=== PATIENT | male | born 1940 ===

== ENCOUNTER 2025-04-11 18:03 | Emergency (ER) | payer MEDICARE, SELFPAY ==
--- NOTE | ~2025-04-11 | CT_ITS ---
CLINICAL HISTORY: ams CT head without contrast Comparison: None provided Findings: No acute intracranial fluid collection or hematoma. Moderate chronic white matter disease with volume loss. Ventricular prominence out of proportion to subarachnoid spaces. This can indicate normal pressure hydrocephalus, please correlate. No acute process in sinuses or mastoids. No acute bony abnormality. Impression: Prominent ventricles relative to subarachnoid spaces Please correlate regarding normal pressure hydrocephalus symptoms No acute intracranial hemorrhage This document has been electronically signed by: Akira Chaidez MD on 04/11/2025 20:42:02
--- NOTE | ~2025-04-11 | XR_ITS ---
CLINICAL HISTORY: ams 1 view chest x-ray Comparison: None provided Findings: Lung apices obscured by mandible. Lungs are clear without acute infiltrates. No pneumothorax. Heart size normal. No acute bony abnormalities. Impression: No acute processes This document has been electronically signed by: Akira Chaidez MD on 04/11/2025 20:00:37
[2025-04-11 18:10] VITALS: BMI 26.2
--- NOTE | 2025-04-11 18:11 | PC.NURSE ---
expect called in by Paulette Garcia cindy ESCROW ASSISTANT. call w any questions regarding care. PMHx severe dementia. WC bound/stand and pivot for transfer. HCP invoked. DNR/DNI, transfer to hospital. staff reporting increasing assaultive behaviors, verbally aggressive, biting, scratching, hitting staff. unclear for provider if she has been getting medication, staff are documenting meds in the MAR, but are reporting to her in person that there is only one staff member who can successfully medicate and the RN doesn't work everyday. Paulette that patient has most likely been getting med inconsistently for ~ 1 month, but was taking meds prior to this. incontinent of stool and urine and staff has been unable to get collect blood/urine samples for further diagnostic workup.
--- NOTE | 2025-04-11 18:46 | ED_ITS ---
HPI - General Adult General Chief complaint: Behavioral Concerns Stated complaint: AGITATED Time Seen by Provider: 04/11/25 18:46 Source: patient Mode of arrival: ambulatory Limitations: no limitations History of Present Illness ED Provider: Dr. Zavaleta HPI narrative: History is limited due to patient's dementia Patient's arrive in the ER agitated and verbally abusive. He is an 84-year-old male history of advanced dementia presented from [facility] from [facility] for increased aggression. He has not complain of any new pain. He does have chronic back pain. Denies any shortness of breath. Patient is questioning why he is here in the ER in the 1st place. He is asking for his sister. Related Data Allergies Allergy/AdvReac Type Severity Reaction Status Date / Time No Known Allergies Allergy Verified 04/11/25 18:21 Review of Systems 2 Review of Systems: Limited review of systems due to advanced dementia [facility] Past Medical History [facility] Narrative: Dementia Social History Social History Advance Directives: Yes Advance Directives on File: Yes Advance Directives Date on File: 04/11/25 Physical Exam ED Exam Exam: General: Aggressive agitated, cachectic appearing Head: Normacephalic, atraumatic ENT: oral mucosa moist, neck supple, no tracheal deviation Cardiovascular: regular rate, regular rhythm, no murmurs, rubbing, gallops Respiratory: CTAB, no wheeze, rales, rhonchi Gastrointestinal: Soft, non distended, non tender, non guarding Extremities: No limb pain or swelling, no calf tenderness Skin: Warm and dry Psychiatric: Verbally abusive, aggressive and agitated Vital Signs: Vital Signs - 24 hr 04/11/25 18:53 04/11/25 19:08 04/11/25 19:23 Pulse Rate 91 87 Respiratory Rate 20 20 18 Blood Pressure 128/67 Pulse Oximetry 96 99 Oxygen Delivery Method Room Air Room Air BMI result Body Mass Index 26.2 Medications Administered Discontinued Medications Generic Name Dose Route Start Last Admin Trade Name Freq PRN Reason Stop Dose Admin Haloperidol Lactate 5 mg 04/11/25 18:46 04/11/25 18:53 Haloperidol Lactate 5 Mg/Ml Vial IM 04/11/25 18:47 5 mg ONCE ONE Administration Midazolam HCl 4 mg 04/11/25 18:46 04/11/25 18:55 Midazolam Hcl 2 Mg/2 Ml Vial IM 04/11/25 18:47 4 mg ONCE ONE Administration Medical Decision Making Medical Decision Making [facility] Narrative: 84-year-old male history of dementia presented hospital today for evaluation of increased aggression. Patient is aggressive and verbally abusive towards staff. Patient is refusing lab work at this time. I do not think patient has capacity. We will plan to give IM Haldol, IM Versed for the patient. I did obtain lab work to assess for causes of altered mentation. CBC shows slight anemia at 9.8. Chemistry did show some signs of dehydration. UA did not show any signs of UTI. Chest x-ray clear for any sign of pneumonia. CT head was negative. There is a finding of possible normal pressure hydrocephalus. We will plan to send a referral for Neurosurgery for evaluation of this. The patient will be discharged back to [facility] facility at this time. Differential Diagnosis Differential Diagnoses: The differential diagnosis associated with the presentation includes UTI, pneumonia, altered mentation, dementia, intracranial bleed, intracranial mass Lab Data [facility] Lab Attestation statement: I reviewed the patient's lab results. 04/11/25 19:32 04/11/25 19:32 Labs: Lab Results 04/11/25 04/11/25 Range/Units 19:32 19:44 WBC 4.8 (4.8-10.8) X10*3/uL RBC 3.36 L (4.60-5.80) X10*6/uL Hgb 9.8 L (14.0-18.0) g/dl Hct 28.6 L (42.0-52.0) % MCV 85.1 (80.0-98.0) fL MCH 29.2 (27.0-33.0) pg MCHC 34.3 (31.0-36.0) g/dl RDW 14.1 (11.0-16.0) % Plt Count 261 (160-400) X10*3/uL MPV 8.6 L (9.4-12.4) fL Immature Gran % (Auto) 0.6 H (0.0-0.4) % Neut % (Auto) 66.5 (45-73) % Lymph % (Auto) 22.0 (20-40) % [place] % (Auto) 9.5 (2-11) % Eos % (Auto) 0.8 (0-4) % Baso % (Auto) 0.6 (0-2) % Lymph # (Auto) 1.1 L (1.2-4.9) X10*3/uL [place] # (Auto) 0.5 (0.1-1.2) X10*3/uL Eos # (Auto) 0.0 (0.0-0.4) X10*3/uL Baso # (Auto) 0.0 (0.0-0.2) X10*3/uL Abs Immat Gran (auto) 0.03 (0.00-0.03) X10*3/uL Absolute Neuts (auto) 3.2 (2.0-8.3) x10*3/uL Absolute Nucleated RBC 0.000 (0.0-0.012) X10*3/uL Nucleated RBC % (auto) 0.0 (0.0-0.2) /100WBC Sodium 136 (135-145) mmol/L Potassium 4.4 (3.3-5.1) mmol/L Chloride 106 (96-108) mmol/L Carbon Dioxide 23 (22-29) mmol/L Anion Gap 11 L (12-20) BUN 31 H (9-16) mg/dL Creatinine 1.13 (0.5-1.4) mg/dL Estim Creat Clear Calc 38.9 Estimated GFR > 60 Random Glucose 122 H (60-115) mg/dL Calcium 9.0 (8.4-10.2) mg/dL Total Bilirubin 0.3 (0.0-1.0) mg/dL AST 25 (5-37) U/L ALT 17 (0-40) U/L Alkaline Phosphatase 74 (39-117) U/L Ammonia 30 (13-55) umol/L Total Protein 6.0 L (6.5-8.0) g/dL Albumin 3.9 (3.5-5.0) g/dL TSH 2.04 (0.32-4.0) uIU/mL Urine Color Yellow Urine Appearance Clear Urine pH 6.0 (5.0-9.0) Ur Specific [place] 1.025 (1.005-1.025) Urine Protein Negative (Neg-Trace) mg/dL Urine Glucose (UA) Negative (Negative) mg/dL Urine Ketones Negative (Negative) mg/dL Urine Blood Negative (Negative) Urine Nitrite Negative (Negative) Ur Leukocyte Esterase Negative (Negative) Independent Interpretation I performed an independent interpretation of an: Plain X-Ray and CT Scan Radiology Impression Discussion of test interpretation with radiology: I have reviewed the radiologist's reading. Chronic Conditions Dementia Discharge Plan Discharge Clinical Impression: Encounter for medical screening examination Patient Disposition: Xfer Psychiatric Hosp Transfer Details: Patient is a [facility]icia psych at [facility]. Discharing back to facility Additional Instructions: Urine did not show any infection, Chest x ray no pneumonia, lab did not show any significan abnormality. CT head did show possible normal pressure hydrocephalus. This will need to follow up with neurosurgery. Please call to schedule appointment. I suspect this is secondary to his advanced dementia. Referrals: [facility] [Outside] Referral Note: Evaluate for normal pressure hydrocephalus Print Language: Unknown
[2025-04-11 18:53] VITALS: RESP 20
[2025-04-11 19:08] VITALS: PULSE 91; RESP 20; O2SAT 96
--- NOTE | 2025-04-11 19:11 | PC.NURSE ---
this rn assumed care of pt, raman rn and previous rn administered IM medications as pt was combative with staff, yelling, attempting to hit and bite staff. pt initially refusing vitals
[2025-04-11 19:23] VITALS: BP 128/67; PULSE 87; RESP 18; O2SAT 99
--- NOTE | 2025-04-11 19:34 | PC.NURSE ---
pt calm and allowed this rn to obtain vitals and labs at this time.
[2025-04-11 19:35] LABS: MANUAL DIFF FLAG NO
[2025-04-11 19:38] LABS: Hematocrit 28.6 % (42.0-52.0); Hemoglobin 9.8 g/dl (14.0-18.0); Imm Gran Abs Auto 0.03 X10*3/uL (0.00-0.03); Imm Gran Pct Auto 0.6 % (0.0-0.4); Lymphocytes Absolute Auto 1.1 X10*3/uL (1.2-4.9); Mean Corpuscular HGB Conc 34.3 g/dl (31.0-36.0); Mean Corpuscular Hemoglobin 29.2 pg (27.0-33.0); Mean Corpuscular Volume 85.1 fL (80.0-98.0); NRBC Abs Auto 0.000 X10*3/uL (0.0-0.012); NRBC Pct Auto 0.0 /100WBC (0.0-0.2); Platelet Count 261 X10*3/uL (160-400); Red Blood Count 3.36 X10*6/uL (4.60-5.80); White Blood Count 4.8 X10*3/uL (4.8-10.8)
[2025-04-11 19:49] LABS: Ammonia 30 umol/L (13-55)
[2025-04-11 20:04] LABS: Alanine Aminotransferase 17 U/L (0-40); Albumin Level 3.9 g/dL (3.5-5.0); Alkaline Phosphatase 74 U/L (39-117); Anion Gap 11 (12-20); Aspartate Amino Transferase 25 U/L (5-37); Blood Urea Nitrogen 31 mg/dL (9-16); Calcium 9.0 mg/dL (8.4-10.2); Carbon Dioxide 23 mmol/L (22-29); Chloride 106 mmol/L (96-108); Creatinine Clr Calc Pharmacy 38.9; Estimated Glomerular Filt Rate > 60; Potassium 4.4 mmol/L (3.3-5.1); Sodium 136 mmol/L (135-145); Total Protein 6.0 g/dL (6.5-8.0)
[2025-04-11 20:06] LABS: Appearance Urine Clear; Glucose Urine UA Negative (Negative); PH 6.0 (5.0-9.0); Specific Gravity - Urine 1.025 (1.005-1.025)
--- NOTE | 2025-04-11 20:45 | PC.NURSE ---
pt spoke to daughter at this time, pt calm and cooperative and update given to sister
--- NOTE | 2025-04-11 21:35 | PC.NURSE ---
report given to Miguel KNAPP
[2025-04-11 23:30] VITALS: BP 122/77; PULSE 77; RESP 15; TEMP 36.7; O2SAT 95
--- NOTE | 2025-04-11 23:30 | PC.NURSE ---
ems at bedside for report and transport
== END 2025-04-11 23:35 ==
PROVIDERS: Emergency Provider Student in an Organized Health Care Education/Training Program; PCP Internal Medicine
DX: R45.1 Restlessness and agitation (principal); R41.82 Altered mental status, unspecified; F03.90 Unspecified dementia, unspecified severity, without behavioral disturbance, psychotic disturbance, mood disturbance, and anxiety; M54.50 Low back pain, unspecified; G89.29 Other chronic pain
CPT/HCPCS: 36415; 70450; 71045; 80053; 81003; 82140; 84443; 85025; 96372; 99284; 99285; J1630; J2250

== ENCOUNTER → 2025-04-11 18:47 | Outpatient (BNV) | payer MEDICARE, SELFPAY | PROVIDERS: Emergency Provider Student in an Organized Health Care Education/Training Program; PCP Internal Medicine; Visit Provider Radiology Diagnostic Radiology | DX: R41.82 Altered mental status, unspecified (principal) | CPT/HCPCS: 70450; 71045 ==

== ENCOUNTER 2025-04-24 21:35 | Emergency (ER) | payer MEDICARE, SELFPAY ==
[2025-04-24 21:44] VITALS: BP 148/83; PULSE 113; RESP 20; TEMP 36.7; O2SAT 95; BMI 19.9
--- NOTE | 2025-04-24 22:03 | PC.NURSE ---
pt [facility], alert but not oriented. per ems staff states after dinner pt became confused and combative wit staff striking them and shouting. on arrival, pt remains con fused, combative an yelling with staff. security at bedside and medications administered. vss.
[2025-04-25 00:27] VITALS: BP 135/88; PULSE 92; RESP 14; O2SAT 96
[2025-04-25 00:47] LABS: Appearance Urine Clear; Glucose Urine UA Negative (Negative); PH 7.0 (5.0-9.0); Specific Gravity - Urine 1.020 (1.005-1.025)
--- NOTE | 2025-04-25 01:33 | PC.NURSE ---
pt remains calm and cooperative at this time. report given to Suma KNAPP [facility], ems booked at this time for transport.
--- NOTE | 2025-04-25 01:34 | ED_ITS ---
HPI - General Adult General Chief complaint: Behavioral Concerns Stated complaint: SN[facility] dementia unit combative with everyone Time Seen by Provider: 04/24/25 21:50 Source: EMS and RN notes reviewed Limitations: other (Advanced dementia) History of Present Illness ED Provider: Hiwot Mai PA-C HPI narrative: 84-year-old male with a history of advanced dementia with the associated underlying agitation, presents from [facility] with the aggressive behavior. Patient developed agitation and aggression overnight, was becoming combative with staff. Related Data Allergies Allergy/AdvReac Type Severity Reaction Status Date / Time No Known Allergies Allergy Verified 04/24/25 21:47 Review of Systems 2 Review of Systems: Unable to obtain Yes all other systems are reviewed and are negative [facility] Past Medical History Attestation statement: The following information was validated with the patient. Social History Social History Advance Directives: Yes Advance Directives on File: Yes Advance Directives Date on File: 04/11/25 Do you have a plan to hurt others: No Plan Physical Exam ED Vital Signs: Vital Signs - 24 hr 04/24/25 21:44 04/25/25 00:27 Temperature 98.0 F Pulse Rate 113 H 92 Respiratory Rate 20 14 Blood Pressure 148/83 H 135/88 Pulse Oximetry 95 96 Oxygen Delivery Method Room Air Room Air BMI result Body Mass Index 19.9 Const Other: Awake, we will not stop yelling Orientation/consciousness: oriented to person Resp Effort & Inspection: normal respiratory effort Cardio Other: Normal peripheral perfusion Skin Other: Warm dry no rash Neuro General: oriented to person and no focal motor deficits Extrem Other: Moves all extremities independently in bed, struggling against attempts to maintain safety while he is in bed, becoming verbally and physically aggressive with staff here in the emergency room Psych Other: Hostile, belligerent, yelling profanities at staff members Medications Administered Discontinued Medications Generic Name Dose Route Start Last Admin Trade Name Freq PRN Reason Stop Dose Admin Haloperidol Lactate 5 mg 04/24/25 21:49 04/24/25 21:55 Haloperidol Lactate 5 Mg/Ml Vial IM 04/24/25 21:50 5 mg STAT STA Administration Midazolam HCl 3 mg 04/24/25 21:49 04/24/25 21:55 Midazolam Hcl 2 Mg/2 Ml Vial IM 04/24/25 21:50 3 mg ONCE ONE Administration Medical Decision Making Medical Decision Making [facility] Narrative: 84-year-old male with a history of advanced dementia with the associated underlying agitation, presents from [facility] with the aggressive behavior. Patient developed agitation and aggression overnight, was becoming combative with staff. Problem: Dementia History: Per EMS I have considered the following differential diagnoses: Baseline behavior, UTI, worsening behavioral symptoms associated with dementia Plan: We will screen labs and a urine sample as medical clearance. The patient is known to our emergency room, he has behavioral outbursts associated with the his dementia. We are having to medicate for the patient's safety, in the safety of staff at this point. Differential Diagnosis Differential Diagnoses: The differential diagnosis associated with the presentation includes See [facility] Admission/Observation Consideration of admission/observation: Escalation of care including admission/observation considered Not applicable Lab Data [facility] Lab Attestation statement: I reviewed the patient's lab results. 04/24/25 22:34 04/24/25 22:34 Labs: Lab Results 04/24/25 04/25/25 Range/Units 22:34 00:29 WBC 6.0 (4.8-10.8) X10*3/uL RBC 3.66 L (4.60-5.80) X10*6/uL Hgb 10.8 L (14.0-18.0) g/dl Hct 30.3 L (42.0-52.0) % MCV 82.8 (80.0-98.0) fL MCH 29.5 (27.0-33.0) pg MCHC 35.6 (31.0-36.0) g/dl RDW 13.9 (11.0-16.0) % Plt Count 296 (160-400) X10*3/uL MPV 8.6 L (9.4-12.4) fL Immature Gran % (Auto) 0.5 H (0.0-0.4) % Neut % (Auto) 67.6 (45-73) % Lymph % (Auto) 19.6 L (20-40) % [place] % (Auto) 11.5 H (2-11) % Eos % (Auto) 0.5 (0-4) % Baso % (Auto) 0.3 (0-2) % Lymph # (Auto) 1.2 (1.2-4.9) X10*3/uL [place] # (Auto) 0.7 (0.1-1.2) X10*3/uL Eos # (Auto) 0.0 (0.0-0.4) X10*3/uL Baso # (Auto) 0.0 (0.0-0.2) X10*3/uL Abs Immat Gran (auto) 0.03 (0.00-0.03) X10*3/uL Absolute Neuts (auto) 4.1 (2.0-8.3) x10*3/uL Absolute Nucleated RBC 0.000 (0.0-0.012) X10*3/uL Nucleated RBC % (auto) 0.0 (0.0-0.2) /100WBC Sodium 140 (135-145) mmol/L Potassium 4.2 (3.3-5.1) mmol/L Chloride 104 (96-108) mmol/L Carbon Dioxide 25 (22-29) mmol/L Anion Gap 15 (12-20) BUN 25 H (9-16) mg/dL Creatinine 0.99 (0.5-1.4) mg/dL Estim Creat Clear Calc 48.3 Estimated GFR > 60 Random Glucose 105 (60-115) mg/dL Calcium 9.2 (8.4-10.2) mg/dL Magnesium 1.9 (1.6-2.6) mg/dL Total Bilirubin 0.6 (0.0-1.0) mg/dL AST 25 (5-37) U/L ALT 28 (0-40) U/L Alkaline Phosphatase 77 (39-117) U/L Total Protein 6.2 L (6.5-8.0) g/dL Albumin 4.1 (3.5-5.0) g/dL Urine Color Yellow Urine Appearance Clear Urine pH 7.0 (5.0-9.0) Ur Specific [place] 1.020 (1.005-1.025) Urine Protein Negative (Neg-Trace) mg/dL Urine Glucose (UA) Negative (Negative) mg/dL Urine Ketones Negative (Negative) mg/dL Urine Blood Negative (Negative) Urine Nitrite Negative (Negative) Ur Leukocyte Esterase Negative (Negative) Discharge Plan Discharge Clinical Impression: Agitation due to dementia Patient Disposition: Home, Self-Care Instructions: Dementia (ED) Additional Instructions: The patient has been medically cleared, he had no lab abnormalities, he does not have a urinary tract infection. He is known to have associated agitation and aggression associated with the his underlying advanced dementia. Print Language: Unknown
[2025-04-25 02:38] VITALS: BP 152/80; PULSE 80; RESP 16; TEMP 36.7; O2SAT 98
[2025-04-25 02:39] VITALS: BP 152/80; PULSE 80; RESP 16; TEMP 36.7; O2SAT 98
== END 2025-04-25 02:39 | disposition home or self-care (01) ==
PROVIDERS: Physician Assistant Medical; Emergency Provider Emergency Medicine
DX: F03.911 Unspecified dementia, unspecified severity, with agitation (principal)
CPT/HCPCS: 36415; 51701; 80053; 81003; 83735; 85025; 96372; 99284; 99285; J1630; J2250

== ENCOUNTER 2025-04-25 04:07 | Emergency (ER) | payer MEDICARE, SELFPAY ==
[2025-04-25] VITALS (9 sets, daily range): BP systolic 137–152; BP diastolic 77–117; PULSE 91–106; RESP 15–20; TEMP 36.7–36.8; O2SAT 98–100; BMI 33.8
--- NOTE | ~2025-04-25 | CT_ITS ---
EXAMINATION: CT CHEST WITHOUT CONTRAST CLINICAL INFORMATION: Chest and upper back pain COMPARISON: Correlated to chest x-ray dated April 11, 2025. TECHNIQUE: Multidetector volumetric CT imaging of the chest was done. Axial MIP volume rendering provided. Sagittal and coronal reformatted images were obtained. This CT examination was performed using dose optimization techniques as appropriate, variously including the following: *Automated exposure control *Adjustment of mA and/or kV according to patient size (this includes techniques or standardized protocols for targeted exams where dose is matched to indication/reason for exam; i.e. extremities or head) *Use of iterative reconstruction technique DLP: 171.18 mGy-cm FINDINGS: Patient's motion artifact. SUPERVISOR FIREARMS: Satisfactory inspiration. Metallic prosthesis left hip. Upper extremities at the size of the body LUNGS: Atelectasis, lung bases. No bronchiectasis. No honeycombing. No gross consolidation. Respiratory airways is patent. Unable to assess for pulmonary nodules due to collimation acquisition and patient's motion. MEDIASTINUM: Prominent, less than 1 cm right pretracheal lymph node. Calcified plaques in the thoracic aorta wall. Ascending thoracic aorta diameter: 4 cm. Aortic arch diameter: 2.8 cm. The ascending thoracic aorta diameter: 3 cm. Calcified plaques in the coronary arteries. Prominent left heart chambers. Small trace volume pericardial effusion. No pneumomediastinum. CORONARY ARTERY CALCIFICATION: Calcified plaques. PLEURA: No pleural effusion. No pneumothorax. No hemothorax. No calcified pleural plaques. AXILLA: No lymphadenopathy. UPPER ABDOMEN: Please refer to the CT abdomen dated April 25, 2025. OSSEOUS STRUCTURES: There is beam hardening artifact secondary to posterior cervical thoracic fusion hardware extending from C7 to T3. Old compression deformity representing 50% volume loss at T4. 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 Kyphotic deformity apex at T7. No acute cortical disruption or gross malalignment. Osteopenia versus osteoporosis. Inadequate evaluation due to patient's treating motion artifact. No gross acute rib fracture. Degenerative changes in the shoulders. 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 Atelectasis lung bases. Coronary artery disease and atherosclerosis disease. Please refer to the CT abdomen pelvis. Fleischner guidelines were followed. Electronically signed by: Jacob Cano MD 04/25/2025 09:10 AM [facility]
--- NOTE | ~2025-04-25 | CT_ITS ---
EXAMINATION: CT ABDOMEN PELVIS WITHOUT IV CONTRAST HISTORY: abdominal and lower back pain COMPARISON: There are no prior studies available for comparison. TECHNIQUE: CT scan of the abdomen and pelvis was performed without contrast using standard departmental protocol. Coronal and sagittal reformatted images were generated and reviewed. Oral contrast material was not administered at the request of the referring physician. This CT exam was performed with one or more of the following dose reduction techniques: automated exposure control, adjustment of the mA and/or kV according to patient size, use of iterative reconstruction technique. DLP: 456 mGy-cm FINDINGS: LOWER CHEST: The visualized lung bases are clear. There is no pleural effusion. CARDIOVASCULATURE: The heart is normal in size. There is severe coronary arterial calcification. There is no pericardial effusion. LIVER: The liver is normal in size and contour. There is a 1.1 cm probable cyst in the right lobe and a 1.6 cm probable cyst in the left lobe. GALLBLADDER / BILE DUCTS: The gallbladder is unremarkable. There is no intra or extrahepatic biliary ductal dilatation. SPLEEN: The spleen is normal in size and has an unremarkable unenhanced appearance. PANCREAS: The pancreas has an unremarkable unenhanced appearance. ADRENAL GLANDS: Unremarkable. KIDNEYS/RETROPERITONEUM: No renal calculi are identified. There is mild bilateral hydronephrosis which may be due to a full urinary bladder. LYMPH NODES: No retroperitoneal lymphadenopathy is identified in the abdomen or pelvis. VASCULATURE: The abdominal aorta demonstrates atherosclerotic calcification, but is normal in caliber. MESENTERY/PERITONEUM: No free fluid. No masses. There is no free intraperitoneal gas. STOMACH: The stomach is collapsed, limiting evaluation. SMALL BOWEL: The small bowel is normal in caliber. COLON: The colon is unremarkable. APPENDIX: The appendix is not seen, however no inflammatory changes are seen adjacent to the cecum. URINARY BLADDER/PELVIC ORGANS: The urinary bladder is distended. There is a left lateral bladder diverticulum. The prostate is mildly enlarged. BONES / SOFT TISSUES: There is severe degenerative disc disease of the lumbar spine. L4 and L5 are fused. There is grade I spondylolisthesis of L4 on L5 and mild retrolisthesis of L5 on S1. The patient is status post left total hip arthroplasty. CT/CT abdomen pelvis wo IV con IMPRESSION: 1. Mild bilateral hydronephrosis which may be secondary to a full urinary bladder. 2. Severe degenerative disc disease of the lumbar spine. Electronically signed by: Marco Antonio Valdez MD 04/25/2025 08:50 AM [facility]
--- NOTE | ~2025-04-25 | CT_ITS ---
EXAMINATION: CT HEAD WITHOUT IV CONTRAST CLINICAL INFORMATION: altered mental status COMPARISON: Head CT on April 11, 2025 TECHNIQUE: Contiguous axial imaging was performed from the skull base to vertex without intravenous administration of contrast. This CT examination was performed using dose optimization techniques as appropriate, variously including the following: *Automated exposure control *Adjustment of mA and/or kV according to patient size (this includes techniques or standardized protocols for targeted exams where dose is matched to indication/reason for exam; i.e. extremities or head) *Use of iterative reconstruction technique FINDINGS: Motion degraded images, especially at the lower slices. Hardware in the occipital bone creates streak artifacts that limits local evaluation. Within these limitations, the findings are as follows: Brain parenchyma: Patchy confluent hypodensity in the white matter of bilateral cerebral hemispheres likely represents chronic small vessel ischemic changes. No shift of midline structures. No obvious mass effect, parenchymal hemorrhage or evidence of acute territorial infarct. Ventricles/extra-axial spaces: Similar prominence of the ventricles and extra-axial CSF spaces reflecting brain volume loss. As previously described, the ventricular prominence appears [id number] to the extra-axial CSF spaces. No extra-axial fluid collection. Extracranial structures/skull: Mild mucosal thickening of the paranasal sinuses. Bilateral mastoid air cells appear clear. No obvious depressed skull fracture identified. CT/CT head/brain wo IV con IMPRESSION: Partially limited examination. No obvious acute intracranial pathology. No obvious interval changes. Electronically signed by: Linda Van MD 04/25/2025 08:55 AM [facility]
--- NOTE | 2025-04-25 04:25 | PC.NURSE ---
pt [facility], previously seen here at [facility] for similar episode. per staff pt increasingly aggressive and shouting. on arrival pt shouting but cooperative with care. vss.
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
[2025-04-25] MEDS: OLANZapine 10 MG VIAL IM ×2 (04:37→05:05)
--- NOTE | 2025-04-25 06:06 | PC.NURSE ---
pt changed into hospital gown, pt noted to have no clothing and pt noted to have personal blankets from facility.
--- NOTE | 2025-04-25 06:33 | PC.NURSE ---
after multiple doses of IM medications, pt continues to be agitated and in need of CT in which pt is shouting and agitated.
--- NOTE | 2025-04-25 07:49 | ECG_ITS ---
Test Reason : AGITATION Blood Pressure : */* mmHG Vent. Rate : 97 BPM Atrial Rate : 97 BPM P-R Int : 144 ms QRS Dur : 88 ms QT Int : 352 ms P-R-T Axes : 51 1 -5 degrees QTcB Int : 447 ms Normal sinus rhythm Septal infarct , age undetermined Abnormal ECG No previous ECGs available Referred By: Fredis Dumont Electronically Signed By: BERTA MASCORRO
[2025-04-25] MEDS: Ketamine HCl/NS 100 MG/10 ML SYRINGE 25 MG IVPUSH (08:16)
--- NOTE | 2025-04-25 08:55 | PC.NURSE ---
Pt sent back to ED from [facility]. Staff at [facility] refusing to take pt back. States he is unsafe. Pt returned to ED. C/o lower back pain. Baseline neuro assessment. Confused, agitated, uncooperative. Pt given IM Versed and IM droperidol to obtain CT. Pt continues to be uncooperative. IV placed and pt given ketamine. VSS. Will continue to monitor closely.
--- NOTE | 2025-04-25 09:28 | MHC.CARE ---
Called the [facility] [phone] to inquire into patient's hx and current bx. Informed staff are in a meeting and will call t/w back
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
--- NOTE | 2025-04-25 10:19 | MHC.CARE ---
Spoke with patient's sister, Kanika, , who is HCP/ POA. She reports that since his early 20s he has been diagnosed with bundled or polyarthritis. He has had the majority of his joints replace and the pain is reported to worse in his back and neck. He cannot stand well on his own and needs assistance with moving. Confirms long hx of pain medication to manage. She believes that his behaviors, his 'acting out' is likely due to pain as well as his perceived loss of agency/ independence. She reports he is resistant to being changed when incontinent, and aggresses in response to staff working to change him. He has also shared feeling upset that he is sent to the ED, that he has no choice in the matter. She shares that she did hire a private person to sit with him at the [facility], in order to support patient as well as [facility] staff. She reports that the private paid individual attempted to help change patient once, and the [facility] was not happy about that. She confirms he has been at the [facility] for roughly three years and it is only recently that he has been sent to an emergency department. Prior to the [facility], he was in a facility in [facility] for one year. Kanika believes he has been dx with Alzheimers. 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 Well, he felt he was super smart. Later goes on to share that his arrogance seems to have manifest is not wanting and resisting help. He is described as highly education, knowledgeable about music and also that he was, for a time in [facility], involved in a [employer]. Kanika is available for any questions/ concerns. She describes his dementia as advanced, and reports she will likely need help in determining next steps.
--- NOTE | 2025-04-25 11:39 | MHC.CM.ED ---
Received case management consult from Dr Dumont. Patient was sent to the ER from [facility] due to toe pain and AMS. Cleared by Care Team. Psych consult for med rec is pending. Will wait until psych consult is complete before speaking with [facility] and patient's sister/HCP, Kanika. Continue to monitor for d/c needs.
--- NOTE | 2025-04-25 12:04 | MHC.CARE ---
Faxed HCP/ POA and med list from [facility] placed in patient's physical chart.
--- NOTE | 2025-04-25 13:50 | PC.NURSE ---
Pt confused, continues to yell out for Rachelle his sister. Sister spoke with pt on the phone. Pt feels that he is being held against his will. Pt reassured that he is safe and updated on plan of care. Will continue to monitor. Pending psych consult
--- NOTE | 2025-04-25 14:56 | PM.PSYCN ---
History of Present Illness Date of Service: 04/25/2025 Chief Complaint: toe pain, aggressive, dementia Reason for Consult: Behavioral disturbance Requesting physician: Ronak Lyle Discussed with referring provider: Yes Sources of Information: patient interviewed, chart reviewed and crisis/core team assessment reviewed HPI Narrative: 84-year-old male with history of dementia with associated behavioral disturbance presented [place] [facility] for increasing agitation and aggressive behavior. He lives in the [facility] at a dementia unit. Apparently, his behavior changed after dinner the night before he presented to the ED. He has been cleared medically. On interview with this provider, patient is alert and oriented to person, place, and time. Patient found lying on the stretcher, eating lunch. He states that he feels terrible because his sister has not visited him today as promised. He reports chronic, persistent low back pain which is generally well managed. He reports anxiety and depression at this time but attributes his symptoms to his sister not visiting him. He wants to be discharged from the ED to return to the [facility]. He denies SI/HI/AVH. Per patient's nurse, patient is confused and will occasionally display verbal outbursts using vulgar language. Per nursing, the patient's behavior seems baseline. Patient was at [facility] on 04/11/2025 and the nurse who cared for him notes that she spoke with the patient's PMHNP at the [facility] who questioned the care the patient is receiving at the [facility]. The PMHNP had concerns that the patient medications were documented as given but were not always administered to the patient. Medical Evaluation Reviewed: Yes Diagnostics Vital Signs (24Hr): Vital Signs - 24 hr 04/25/25 04:14 04/25/25 06:15 04/25/25 07:20 Temperature 98.1 F 98.2 F Pulse Rate 95 100 102 H Respiratory Rate 20 15 Blood Pressure 141/110 H 138/117 H 143/102 H Pulse Oximetry 100 99 99 Oxygen Delivery Method Room Air Room Air 04/25/25 07:35 04/25/25 07:50 04/25/25 08:20 Temperature Pulse Rate 102 H 105 H 98 Respiratory Rate Blood Pressure 152/90 H 137/91 H 142/90 H Pulse Oximetry 98 99 99 Oxygen Delivery Method Room Air Room Air Room Air 04/25/25 09:00 04/25/25 13:32 Temperature 98.1 F Pulse Rate 106 H 95 Respiratory Rate 16 Blood Pressure 143/77 H 137/81 Pulse Oximetry 99 100 Oxygen Delivery Method Room Air Room Air BMI result Body Mass Index 33.8 Imaging Radiology Impressions: ITS Impressions Abdomen/Pelvis CT 04/25/25 08:13 IMPRESSION: 1. Mild bilateral hydronephrosis which may be secondary to a full urinary bladder. 2. Severe degenerative disc disease of the lumbar spine. 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 Atelectasis lung bases. Coronary artery disease and atherosclerosis disease. Please refer to the CT abdomen pelvis. Fleischner guidelines were followed. Electronically signed by: Jacob Cano MD 04/25/2025 09:10 AM EST RP Head CT 04/25/25 08:13 IMPRESSION: Partially limited examination. No obvious acute intracranial pathology. No obvious interval changes. Electronically signed by: Linda Van MD 04/25/2025 08:55 AM EST RP Mental Status Exam Mental Status Exam Narrative: Appearance: Casually dressed, adequate hygiene and grooming Behavior: Calm and cooperative throughout the interview. Irritable at times. Minimal eye contact, and there are no signs of psychomotor agitation or retardation Speech: Normal volume and prosody Thought process: Disorganized, tangential Thought content: On being discharged from the ED Mood: Calm Affect: Blunted SI: Denies HI: Denies VH/AH: Denies Delusions: None apparent Insight/judgment: Impaired insight and judgment Memory/cog: Alert, oriented x 3. grossly intact to conversational testing Medications Allergies Allergies Allergy/AdvReac Type Severity Reaction Status Date / Time No Known Allergies Allergy Verified 04/25/25 04:19 Assessment & Plan Assessment & Plan (1) Dementia with behavioral disturbance: Status: Acute Code(s): F03.918 - Unspecified dementia, unspecified severity, with other behavioral disturbance (2) Chronic back pain: Status: Acute Code(s): M54.9 - Dorsalgia, unspecified; G89.29 - Other chronic pain Plan 84-year-old male with history of dementia with associated behavioral disturbance presented to [facility] for increasing agitation and aggressive behavior. He lives in the [facility] at a dementia unit. Apparently, his behavior changed after dinner the night before he presented to the ED. He has been cleared medically. On interview with this provider, patient is alert and oriented to person, place, and time. He states that he feels terrible because his sister has not visited him today as promised. He reports chronic, persistent low back pain which is generally well managed. He reports anxiety and depression at this time but attributes his symptoms to his sister not visiting him. He wants to be discharged from the ED to return to the [facility]. He denies SI/HI/AVH. Per patient's nurse, patient is confused and will occasionally display verbal outbursts using vulgar language. Per nursing, the patient's behavior seems baseline. Patient was at [facility] on 04/11/2025 and the nurse who cared for him notes that she spoke with the patient's PMHNP at the [facility] who questioned the care the patient was receiving at the [facility]. The PMHNP had concerns that the patient medications were documented as given but were not always administered to the patient. Plan/Recommendation: Patient's symptoms may be attributed to progression of his dementia or inadequate care as a results of not been medicated as prescribed. Significant pain may also contribute to his symptoms. Recommend to continue current treatment regimen and for providers at his residence to ensure patient receives his medications as prescribed. Follow-up with PMHNP at the [facility]. Total time managing care of this patient today ____ minutes. Patient educated on: diagnosis, medication risk/benefits and therapeutic strategies
--- NOTE | 2025-04-25 16:13 | MHC.CM.ED ---
Patient cleared by Care Team. Psych consult completed. No med changes per Vita Hinkle NP. It has been determined that patient has been refusing home medications at [facility]. Met with patient's sister/HCP, Kanika, at her request. Met in family room with Kanika and her Wilfredo. Patient was living in [facility] with his until she in April 2023. Patient's dementia symptoms have been steady until about 2 weeks ago. Since then, there has been a rapid decline in patient's mentation, including refusing incontinent care and medication. At this time, Kanika feels [facility] is not able to provide the care that the patient needs and requires remote computer terminal operator care at a [facility] facility. Kanika states that patient has a lifetime remote computer terminal operator care policy and funds. Kanika will provide information on this policy to [facility]. Kanika reports that patient has been refusing his medications while at [facility]. Kanika and Wilfredo toured [facility]. That would be there 1st choice. [facility] be 2nd choice. If neither facility is able to offer a bed, Kanika and Wilfredo agreeable to referral being broadcasted. Patient is not an elopement risk because he is too weak to elope. Patient has chronic pain issues and was being treated by a pain specialist in [facility]. However, they have not been able to adress this with a provider at this time. Dr Lyle aware and will add PRN pain meds to assist patient with pain management. Continue to monitor for d/c needs.
[2025-04-25] MEDS: oxyCODONE HCl Immed Release 5 MG TABLET PO (17:30)
--- NOTE | 2025-04-25 18:55 | PC.NURSE ---
assumed care of patient, pt yelling out for help, very confused and repetitive, Meds not ordered after med rec completed. reached out to attending to order meds
--- NOTE | 2025-04-26 00:10 | PC.NURSE ---
patient continues yelling out of anyone who walks by room. very argumentative and difficult to redirect
[2025-04-26 02:20] VITALS: BP 154/80; PULSE 90; RESP 16; O2SAT 97
[2025-04-26] MEDS: oxyCODONE HCl Immed Release 5 MG TABLET PO ×3 (02:59→14:39)
--- NOTE | 2025-04-26 02:59 | PC.NURSE ---
patient reporting pain to back, medicated per MAR at this time
--- NOTE | 2025-04-26 06:00 | PC.NURSE ---
pt resting quietly in hospital bed, no apparent distress noted
[2025-04-26 08:40] VITALS: BP 152/88; PULSE 91; RESP 17; TEMP 36.5; O2SAT 100
[2025-04-26] MEDS: traZODone HCL 25 MG HALFTAB PO (09:02)
[2025-04-26] MEDS: Lidocaine 4 % Patch ADH..PATCH 1 PATCH TRANSDERMA (10:49)
--- NOTE | 2025-04-26 12:03 | PC.NURSE ---
pt repeatedly calling out for help. each time nursing staff addresses pts needs. assisted with water, food, repositioning, urinating. Griselda ISLAS ordered tylenol and a lidocaine patch - pt reports mid back pain.
--- NOTE | 2025-04-26 12:33 | MHC.CM.ED ---
Addendum entered by Sofía Perez 04/26/25 14:58: [facility]. Patient, sister Kanika and Brother in law, Wilfredo all updated on plan. Original Note: Patient remains in ER. [facility] is unable to offer a bed. [facility] has not responded. Referral broadcasted within 15 miles of patient's home. Patient's sister/HCP, Kanika, updated. Continue to monitor for d/c needs.
--- NOTE | 2025-04-26 14:31 | PHA.MEDREC ---
Addendum entered by Juwan Jin PharmD 04/26/25 14:54: reviewed Original Note: Pharmacy Consult ? Medication Reconciliation Pharmacy reviewed med rec done by nursing. Got list from [facility] I utilized. Updated Clonazepam 0.5mg; nurse confirmed 0.5mg qd, list states 1/2 tab (0.25mg) @bedtime, added Tylenol 500mg 2 tabs TID, Miconazole 2% cream apply topically to skin daily, Miralax powder 17gm daily mixed with 8 ounces of fluid, Tamsulosin 0.4mg caps 1 @ bedtime, Trazodone 50mg 1 tab at bedtime; nurse only added 25mg daily from list, Oxycodone 5mg 1/2 tab q6h prn pain, taken 4 hours between scheduled doses; nurse only added Oxycodone 5mg BID from list, added Systane Balance 0.6% eye drops 2 drops OU TID PRN irritation, redness or itching and added Haloperidol 1mg 1/2 tab BID PRN as needed for agitation, nurse had only added Haloperidol 0.5mg BID
[2025-04-26 16:01] VITALS: BP 138/82; PULSE 91; RESP 16; TEMP 37.4; O2SAT 99
--- NOTE | 2025-04-26 21:49 | PC.NURSE ---
pt is currently asleep; once pt wakes up pt will be medicated per MAR.
[2025-04-27] MEDS: oxyCODONE HCl Immed Release 5 MG TABLET PO ×3 (01:10→20:17)
--- NOTE | 2025-04-27 01:10 | MHC.EDTECH ---
patient observed to be tossing and turning in bed uncomfortable looking, at bedside i noticed patients purwick off,patient soiled in urine and scratching at left hip and buttock due to urine irrataion. nurse at bedisde with meds for patient and to observe . patient refuses meds and to be changed. i called over to ed to ask for extra help as patient became angry and agressive when attempting to speak with him to let him know we were going ot change him do to being soiled. patient states leave me alone, get the hell out of here. patient swatting at staff, kicking his feet. awaiting for additional help to medicate patient with rn and change patient and bed.
--- NOTE | 2025-04-27 01:30 | PC.NURSE ---
2100 meds given late as pt was allowed to rest. RN crushed meds and gave it to pt in icecream. Pt was resistant at first but RN was able to give pt the meds. Pts purewick had come off so he was laying in urine- tech called ED for 2 assist as pt gets violent and hits staff. With a 4 assist we were able to change pts linen, clean him up & apply a new purewick. Pts call carlin is within reach, bed alarm on, bed on lowest level.
[2025-04-27 01:35] VITALS: PULSE 79; RESP 16; TEMP 36.5; O2SAT 98
--- NOTE | 2025-04-27 01:41 | MHC.EDTECH ---
Addendum entered by Felicita Schmidt 04/27/25 01:43: patient repostioned pillows placed for confort, patient settled attempted vitals only was able to get temp, hr and o2 before patient started again yelling screming and starting to hit, rn aware Original Note: additional staff from ed arrived for bed change and to help with changing of patient and re application of male purewick. patient very combative during this process. rn medicating patient first patient hitting rn away multiple times with our help, patient cleaned barrier cream applied, male purewick reapplied, pads changed, patients gown changed, patient repositioned . patient very angry during this process, hittting, kitcking, pinching, swearing, threating, yelling ect.
[2025-04-27 06:00] VITALS: BP 149/67; RESP 12; TEMP 36.7
[2025-04-27] MEDS: traZODone HCL 25 MG HALFTAB PO (13:29)
[2025-04-27 14:00] VITALS: BP 112/58; PULSE 72; RESP 12; TEMP 37; O2SAT 96
[2025-04-28 05:25] VITALS: PULSE 82; RESP 14; TEMP 36.5; O2SAT 97
[2025-04-28] MEDS: oxyCODONE HCl Immed Release 5 MG TABLET PO ×5 (05:53→23:02)
--- NOTE | 2025-04-28 06:17 | PC.NURSE ---
Assumed care of patient in ED OVF at 1900. Patient is alert, oriented to self only at this time. He is yelling out at times. Redirectable.? Patient refusing BP to be checked. Room air. Accepted medication in icecream. Male purewick in place. Bed in lowest setting, locked and alarmed.? Call carlin within reach. Awaiting LTC placement.
[2025-04-28] MEDS: traZODone HCL 25 MG HALFTAB PO (07:23)
[2025-04-28 14:00] VITALS: BP 108/57; PULSE 93; RESP 17; TEMP 36.6; O2SAT 94
[2025-04-28 21:45] VITALS: BP 135/71; PULSE 96; RESP 18; TEMP 36.3; O2SAT 93
[2025-04-28 23:58] VITALS: BP 136/63; PULSE 80; RESP 14; TEMP 36.5; O2SAT 97
--- NOTE | 2025-04-29 02:51 | PC.NURSE ---
Assumed care of patient in ED OVF at 1900. Patient is alert, oriented to self. Pt able to make needs known but demonstrates significant memory loss as frequent ask same questions and unable to recall recent conversations. Patient frequently yelling out Help me , swearing and or hitting staff when attempting to provide patient requests for care. Patient medicated for back pain, repositioned in bed, adjusted pillows, provided beverages, request for ice cream and assistance with purewick. Patient accepting medications in ice cream. Sung ISLAS notified and Zyprexa 10mg po provided to patient providing little effect as patient slept for only 1.5 hours only. Trazodone 50mg PO ordered and provided to promote sleep with effects pending as of 0300. Male purewick intact, patient voiding light michael urine. Patient provided and encourage to drink beverages with patient preference being water. Bed in lowest setting, locked and alarmed. Call carlin in reach. Plan is for superintendent terminal care placement.
[2025-04-29] MEDS: oxyCODONE HCl Immed Release 5 MG TABLET PO ×4 (05:19→18:28)
[2025-04-29 05:57] VITALS: BP 176/85; PULSE 82; RESP 14; TEMP 36.4; O2SAT 100
[2025-04-29 06:19] VITALS: RESP 18
[2025-04-29 08:11] VITALS: BP 190/78; PULSE 88; RESP 18; TEMP 36.5; O2SAT 97
[2025-04-29] MEDS: traZODone HCL 25 MG HALFTAB PO (08:29)
[2025-04-29 14:00] VITALS: BP 148/57; PULSE 87; RESP 18; TEMP 36.5; O2SAT 95
--- NOTE | 2025-04-29 20:46 | PC.NURSE ---
pt given PRN oxycodone at 1830, denies pain at this time. This RN held the scheduled oxycodone and will give at 0030
--- NOTE | 2025-04-29 21:05 | PC.NURSE ---
pt medicated per JUL. pt advised he has a purewick is in place. vitals taken. respirations even and unlabored, bed alarm in place.
[2025-04-29 21:17] VITALS: BP 144/86; PULSE 95; RESP 18; TEMP 37.2; O2SAT 97
--- NOTE | 2025-04-29 21:18 | MHC.EDTECH ---
Did pts vitals. Pt was yelling at me and swearing at me. QWanted to change the pts linen and clean him up. Pt got combative and hit me and called me son of a bitch . Pt did not want me cleaning him up or touching him. Let RN be aware
[2025-04-30 06:00] VITALS: BP 158/82; PULSE 87; RESP 14; TEMP 36.2; O2SAT 97
[2025-04-30] MEDS: traZODone HCL 25 MG HALFTAB PO (08:35)
[2025-04-30] MEDS: oxyCODONE HCl Immed Release 5 MG TABLET PO ×2 (08:35→21:14)
--- NOTE | 2025-04-30 12:15 | PC.NURSE ---
Assumed care of patient in ED OVF at 1100. Patient is alert, oriented to self only at this time. Pt sleeping comfortably on bed. Reports from previous RN that pt is yelling out at times and vulgur. occasional attempts at physical hitting to staff. pt somewhat redirectable.? Patient refusing BP to be checked. Room air. Accepts medication in icecream. Male purewick in place. Bed in lowest setting, locked and alarmed.? Call carlin within reach. Awaiting return to [facility]? or new LTC placement.
--- NOTE | 2025-04-30 14:47 | PC.NURSE ---
Wound care nurse came to evaluate patient groin. Patient refused to allow full exam. Told this RN and eye specialist Leave me the fuck alone you stupid bitch Patient states he is fine nothing hurts so leave me alone
--- NOTE | 2025-04-30 14:57 | PC.NURSE ---
sister stopped by for a visit but patient wasn't up for visitors so she and her left for afternoon and said they will try again tomorrow.
--- NOTE | 2025-04-30 15:12 | HO.WOUND ---
Wound Consult: Initial 84 yr old male seen in [facility] ED- See progress notes and H&P for detailed history. Wound consult placed for groin MASD. Patient not agreeable to assessment and photo documentation. Seen at bedside with direct care RN. upon assessment patient yelling and swinging fists. unable to get thorough visualization of area. bilateral groin appears to be intact, mildly pink and moist. Purewick in place appears with mild leakage. recommend barrier cream to groin Recommendations: 1. Turn and Reposition every 2 hours and as needed for patient comfort. Use pillows or wedges to support off loading positions. 2. Off Load all bony prominences with use of pillows and heel boots if needed. Apply Preventative foams where needed. 3. Monitor for incontinence and moisture control, use barrier creams when needed for prevention and treatment. 4. Provide adequate and supplemental nutrition. 5. Order or Continue low air loss mattress. 6. When applicable maintain blood glucose levels per Providers order. bilateral groin- barrier cream BID and PRN with incontinent episodes. Re-consult wound care Nurse for wound deterioration or wound changes.
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
[2025-04-30] MEDS: OLANZapine 10 MG VIAL 5 MG IM (18:01)
[2025-04-30 19:36] VITALS: BP 169/68; PULSE 85; RESP 20; TEMP 36.3
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
--- NOTE | 2025-05-01 04:27 | PC.NURSE ---
PT currently up yelling help me! , Maikol!! , when approaching [t for assistance and to ask him to lower his voice, pt telling staff to shut the fuck up . Notified tumblers supervisor regarding pts disruptive behavior that is impacting the other patients. Also notified JANEL Almaraz for possible PRN for agigtation
[2025-05-01] MEDS: OLANZapine 10 MG VIAL IM (04:47)
--- NOTE | 2025-05-01 04:57 | PC.NURSE ---
PT medicated as per JUL.
[2025-05-01 06:49] VITALS: BP 115/77; PULSE 90; RESP 18
[2025-05-01] MEDS: oxyCODONE HCl Immed Release 5 MG TABLET PO (08:35)
[2025-05-01] MEDS: traZODone HCL 25 MG HALFTAB PO (09:00)
--- NOTE | 2025-05-01 11:12 | PC.NURSE ---
Pt transferred here from overflow for disruptive behaviors and abusive language towards staff. Continues these behaviors in the Main, though somewhat redirectable. Medicated with anxiolytic as ordered, Haldol and clonazepam to be held per Crista ISLAS. Phone call made out to sister as requested by pt, she will be visiting here later this afternoon.
--- NOTE | 2025-05-01 13:04 | PC.NURSE ---
Patient ringing call carlin very frequently, requiring constant redirection. Awaiting sister's arrival. Patient is at times grumpy/cantankerous, but redirectable at this time. Care ongoing by this RN.
--- NOTE | 2025-05-01 13:20 | MHC.CM.ED ---
Patient remains in ER. No bed offers at this time. Referral broadcasted within 50 miles. T/W stopped by patient's room. Patient did not recall meeting T/W. Did ask if the clock in his room was correct and thanked T/W. Patient's sister/HCP, Kanika stallings. Continue to monitor for d/c needs.
[2025-05-01 14:54] VITALS: BP 117/70; PULSE 90; RESP 18; TEMP 36.6; O2SAT 96
[2025-05-01 20:05] VITALS: BP 140/83; PULSE 88; RESP 18; TEMP 36.7; O2SAT 97
[2025-05-02] MEDS: traZODone HCL 25 MG HALFTAB PO (11:19)
--- NOTE | 2025-05-02 13:42 | MHC.CM.ED ---
Addendum entered by Sofía Perez 05/02/25 16:17: Multiple facilities are requesting Medicaid questionnaire be completed. This form was provided to Kanika. Kanika will complete it and return it to . Original Note: Patient remains in ER. [facility] is able to offer a bed. Spoke with patient's sister/HCP, Kanika. [facility] is about 1 hour and 45 mins away. Kanika is hoping for something a little closer. [facility]. They have been asked to review to see if they can offer a bed. Continue to monitor for d/c needs.
[2025-05-02 14:20] VITALS: BP 139/82; PULSE 92; RESP 18; TEMP 37.2; O2SAT 95
--- NOTE | 2025-05-02 19:20 | PC.NURSE ---
This chief writer assumed care of this Pt at 1900. Pt awake, A&O forgetful. Pt sitting up in bed eating dinner tray.
[2025-05-02 22:48] VITALS: BP 133/70; PULSE 84; RESP 20; TEMP 36.9; O2SAT 95
--- NOTE | 2025-05-03 08:26 | MHC.CM.ED ---
Addendum entered by Sofía Perez 05/03/25 10:17: [facility] can potentially offer a bed. Facility spoke with Kanika. Kanika will tour facility. Original Note: Patient remains in ER. Medicaid questionnaire completed by sister/HCP, Kanika and returned to CM. Form and clinical updates sent to facilities still reviewing/following. Continue to monitor for d/c needs.
[2025-05-03 09:51] VITALS: RESP 17
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
[2025-05-03] MEDS: traZODone HCL 25 MG HALFTAB PO (11:59)
--- NOTE | 2025-05-03 12:02 | PC.NURSE ---
Patient medicated per JUL, agreed to have chocolate ice cream, but otherwise continues occasionally swearing at this RN. Refused Lovenox injection at this time. Will re-attempt at a later time when calmer. Care ongoing by this RN.
--- NOTE | 2025-05-03 20:40 | PC.NURSE ---
spoke with patient at bedside. pt refusing to take any of his night meds. went thru the list with him and asked would he take any of them. pt said i am not taking them get out of my room . pt is calm at the time of this interaction. continues to refuse meds
[2025-05-04 00:26] VITALS: BP 147/77; PULSE 77; RESP 20; TEMP 36.5; O2SAT 100
--- NOTE | 2025-05-04 00:28 | MHC.EDTECH ---
patient noted to be soiled with stool and purwick soiled, patient changed with help of 3 staff members as patient was combative, hitting, kicking, spitting, swearing, threatening. patient completely changed, bed completly changed, patients position changed . patient still continues to yell out.
--- NOTE | 2025-05-04 08:51 | MHC.CM.PN ---
Addendum entered by Lyndsay Carty RN 05/04/25 15:47: No bed offer from [facility], which family prefers, as they are requesting [facility] prior to admitting to [facility]. CM, ED director and CM director met with patient and family at bedside. CM also discussed case w/ [facility] leticia-biopsychologist. Plan for patient to return to [facility]. Leticia-biopsychologist following closely and agrees w/ plan. BLS transport scheduled for 430pm. RN, GAS DISPENSER and family aware. Addendum entered by Lyndsay Carty RN 05/04/25 10:44: Correction - [facility], [facility]. Will make a decision tomorrow after touring last facility and will update CM. Addendum entered by Lyndsay Carty RN 05/04/25 09:32: [facility]. Original Note: CM spoke w/ sister, Kanika, who toured [facility] yesterday. She did not decline or accept bed offer, but feels that it is too crowded. She would like to tour [facility] and [facility], who have previously offered beds. Reviewed sense of urgency and plan to move forward w/ a bed offer by end of day. CM sent messages to SNF's to confirm a bed is still available. Will continue to follow.
[2025-05-04] MEDS: traZODone HCL 25 MG HALFTAB PO (08:58)
[2025-05-04] MEDS: Miconazole 2 % Extra Thick Cr 56.7 Gm Tube 1 APPL TOPICAL (09:00)
[2025-05-04 14:11] VITALS: BP 147/77; PULSE 77; RESP 20; TEMP 36.5; O2SAT 100
--- NOTE | 2025-05-04 14:14 | PC.NURSE ---
Patient calm this AM Patient took medications in chocolate ice cream Tele monitor on and functioning Patient incontinent of bowel patient cleaned up and given fresh linen Patient incontinent of urine, purewick in place Patient noted to be yelling out for help. Patient repositioned and given water to drink. Unable to redirect patient, lights dimmed and stimulation reduced with no effect\ Bed in low position and bed alarm on
[2025-05-04 16:50] VITALS: BP 147/77; PULSE 77; RESP 20; TEMP 36.5; O2SAT 100
== END 2025-05-04 16:50 ==
PROVIDERS: Emergency Provider Emergency Medicine; PCP Internal Medicine
DX: G30.9 Alzheimer's disease, unspecified (principal); F02.811 Dementia in other diseases classified elsewhere, unspecified severity, with agitation; G89.29 Other chronic pain; M51.369 Other intervertebral disc degeneration, lumbar region without mention of lumbar back pain or lower extremity pain; M45.4 Ankylosing spondylitis of thoracic region; M13.0 Polyarthritis, unspecified; Z79.899 Other long term (current) drug therapy
CPT/HCPCS: 70450; 71250; 74176; 93005; 96372; 96374; 99285; J1650; J1790; J2250; J2359; S9485

== ENCOUNTER → 2025-04-25 04:28 | Outpatient (BNV) | payer MEDICARE, SELFPAY | PROVIDERS: Emergency Provider Emergency Medicine; PCP Internal Medicine; Visit Provider Nurse Practitioner Family | DX: F03.918 Unspecified dementia, unspecified severity, with other behavioral disturbance (principal); M54.9 Dorsalgia, unspecified; G89.29 Other chronic pain | CPT/HCPCS: 99283 ==

== ENCOUNTER → 2025-04-25 05:57 | Outpatient (BNV) | payer MEDICARE, SELFPAY | PROVIDERS: Emergency Provider Emergency Medicine; Visit Provider Radiology Diagnostic Radiology | DX: R41.82 Altered mental status, unspecified (principal) | CPT/HCPCS: 70450; 71250; 74176 ==

== ENCOUNTER → 2025-04-25 07:49 | Outpatient (BNV) | payer MEDICARE, SELFPAY | PROVIDERS: Emergency Provider Emergency Medicine; Visit Provider Internal Medicine | DX: R94.31 Abnormal electrocardiogram [ECG] [EKG] (principal); R45.1 Restlessness and agitation | CPT/HCPCS: 93010 ==